=== PATIENT | female | born 1950 | race Caucasian/White ===

== ENCOUNTER → 2016-10-18 | Outpatient (CLI) | payer MEDICARE, OTHER ==
[~2016-10-18] MED LIST: ASPIRIN81 MG PO; BENADRYL25 M1 PO; BUMETANIDE2 MG PO; COLACE100 MG PO; CYMBALTA60 MG PO; ELIQUIS5 MG PO; FLECAINIDE ACET50 MG PO; LANTUS100 UNIT/1 SUBCUT; LIPITOR80 MG PO; LOTENSIN5 MG PO; LYRICA100 MG PO; NASONEX17 GM INH; ORACEA40 MG PO; OXYCODONE HCL5 MG PO; TOPROL XL25 MG PO; TRADJENTA5 MG PO; TYLENOL325 MG PO; ULORIC80 MG PO; ULTRAM50 MG PO; VITAMIN D-32000 UNIT PO
== END | disposition short-term general hospital (02) ==
LOC: ULTR 10-12 13:34 → CLCARD 08:45 → EDSTATUS 10:35 → ULTR 14:25
DX: R94.31 Abnormal electrocardiogram [ECG] [EKG] (principal); I11.0 Hypertensive heart disease with heart failure; I50.42 Chronic combined systolic (congestive) and diastolic (congestive) heart failure; I48.0 Paroxysmal atrial fibrillation; E11.9 Type 2 diabetes mellitus without complications; E78.2 Mixed hyperlipidemia; Z79.899 Other long term (current) drug therapy